=== PATIENT | male | born 1970 | race Caucasian/White ===

== ENCOUNTER 2022-07-26 16:22 | Emergency (ER) | payer MEDICARE, MEDICAID ==
[~2022-07-26] VITALS: Ht 180.3 cm; Wt 97.7 kg
[~2022-07-26 16:22] MED LIST: ACYC-129 PO; ADV50500 IH; ATEN50TA PO; BIOF1TAB7 PO; CALC-159 PO; LEVO50TA8 PO; LOSA1TAB36 PO; OMEG-15 PO; OMEP20CA15 PO; PRED10TA PO; PRED5TAB PO
[2022-07-26 17:10] VITALS: BP 130/89
[2022-07-26] MEDS ORDERED: oxyCODONE/APAP 5-325mg tablet PO ONE (17:15)
== END 2022-07-26 19:56 | disposition home or self-care (01) ==
LOC: ER 16:22
DX: N99.89 Other postprocedural complications and disorders of genitourinary system (principal); I10 Essential (primary) hypertension; E78.00 Pure hypercholesterolemia, unspecified; Z88.6 Allergy status to analgesic agent; Z79.899 Other long term (current) drug therapy; Z79.1 Long term (current) use of non-steroidal anti-inflammatories (NSAID); Z79.2 Long term (current) use of antibiotics
CPT/HCPCS: 99284